=== PATIENT | male | born 1970 | race African-American/Black ===

== ENCOUNTER 2016-08-30 10:54 | Day surgery (SDC) | payer MEDICAID ==
[~2016-08-30] VITALS: Ht 185.4 cm; Wt 203.7 kg
[~2016-08-30 10:54] MED LIST: CIPR2.5D9 RIGHTEYE; PRED5DRO7 RIGHTEYE
[2016-08-30] MEDS ORDERED: LACTATED RINGERS 1,000 ML IV SCH (13:30)
[2016-08-30] MEDS ORDERED: BALANCED SALT IRRIG SOLN 15ML ONE (13:35)
[2016-08-30] MEDS ORDERED: CIPROFLOXACIN 0.3% OPHTH SOLN 2.5ML ONE (13:35)
[2016-08-30] MEDS ORDERED: TETRACAINE 0.5% OPHTH DROPS 4ML ONE (13:35)
[2016-08-30] MEDS ORDERED: PREDNISOLONE ACETATE 1% OPHTH DROPS 1ML ONE (13:35)
[2016-08-30] MEDS ORDERED: LIDOCAINE HCL 2%/EPINEPHRINE 1:100,000 20 ML VIAL INFIL ONE (13:35)
[2016-08-30] MEDS ORDERED: NEO/POLYMYX B SULF/DEXAMETH OPHTH OINT 3.5GM ONE (13:35)
[2016-08-30] MEDS ORDERED: FENTANYL CITRATE/PF 50MCG/ML 2ML VIAL ONE (14:08)
[2016-08-30] MEDS ORDERED: LIDOCAINE HCL 1% 20ML VIAL (Pyxis) INJ ONE (14:09)
[2016-08-30] MEDS ORDERED: PROPOFOL 200MG/20ML VIAL IV ONE (14:09)
== END 2016-08-30 16:35 | disposition home or self-care (01) ==
LOC: OR 10:54
PROVIDERS: ATTEND Ophthalmology
DX: T81.30XA Disruption of wound, unspecified, initial encounter (principal); T15.01XA Foreign body in cornea, right eye, initial encounter; Y83.9 Surgical procedure, unspecified as the cause of abnormal reaction of the patient, or of later complication, without mention of misadventure at the time of the procedure; Y92.89 Other specified places as the place of occurrence of the external cause; E66.01 Morbid (severe) obesity due to excess calories; G47.30 Sleep apnea, unspecified
CPT/HCPCS: 66250; J3010; J3490; J7120; J2704